=== PATIENT | male | born 1980 | race Caucasian/White ===

== ENCOUNTER 2021-01-26 11:47 | Emergency (ER) | payer SELFPAY ==
[2021-01-26 13:00] LABS: Absolute Lymphocytes (CBC) 2.3 K/uL (0.7-4.9); Basophils % 0.5 % (0-1.3); Hematocrit 40.5 % (39.6-49.0); Lymphocytes % 39.7 % (15.3-44.8); MPV 8.7 fL (7.6-11.3)
[2021-01-26] MEDS ORDERED: ONDANSETRON 4 MG/2 ML VIAL ONE (13:05)
[2021-01-26] MEDS ORDERED: KETOROLAC 30 MG/ML INJ ONE (13:06)
[2021-01-26] MEDS ORDERED: NA CHLORIDE 0.9% 1,000 ML ONE (13:06)
[2021-01-26 13:17] LABS: ALT/SGPT 22 U/L (12-78); AST/SGOT 13 U/L (15-37); Albumin 3.9 g/dL (3.4-5.0); Alkaline Phosphatase 56 U/L (45-117); BUN Blood Urea Nitrogen 18 mg/dL (7-18); Bicarbonate 31 mmol/L (21-32); Bilirubin Direct < 0.1 mg/dL (0-0.2); Bilirubin Total 0.2 mg/dL (0.2-1.0); Glucose Level 109 mg/dL (74-106); Lipase 70 U/L (73-393); Potassium 3.7 mmol/L (3.5-5.1); Protein, Total 6.9 g/dL (6.4-8.2); Sodium Level 143 mmol/L (136-145)
--- NOTE | 2021-01-26 13:27 | RAD REPORT ---
EXAM DESCRIPTION: US - Abdomen Exam Limited - 01/26/2021 1:17 pm CLINICAL HISTORY: ABD PAIN COMPARISON: No comparisons FINDINGS: No gallstones, sludge or other abnormalities within the gallbladder lumen. There is no wal l thickening or pericholecystic fluid. No common duct stone or biliary tree dilatation identified. IMPRESSION: Normal gallbladder and biliary tree ultrasound.
--- NOTE | 2021-01-26 14:11 | RAD REPORT ---
EXAM DESCRIPTION: CT - Abdomen Pelvis W Contrast - 01/26/2021 1:42 pm CLINICAL HISTORY: ABD PAIN, right upper quadrant pain COMPARISON: No comparisons TECHNIQUE: Biphasic, helical CT imaging of the abdomen and pelvis was performed following 100 ml non -ionic IV contrast. No oral contrast administered. All CT scans are performed using dose optimization technique as appropriate and may include automated exposure control or mA/KV adjustment according to patient size. FINDINGS: No suspicious findings in the lung bases. The liver, spleen, and pancreas show no suspicious findings. Gallbladder and biliary tree are also wi thout suspicious finding. Symmetric renal function is seen with no hydronephrosis or suspicious renal mass. No pyelonephritis o r acute parenchymal process. No bladder abnormalities. No adrenal abnormalities. No dilated bowel loops or bowel wall thickening. No appendicitis findings. No free air, free fluid or inflammatory stranding. No hernia, mass or bulky lymphadenopathy. No abdominal wall hematoma or ske letal muscle injury identifiable. No suspicious bony findings. IMPRESSION: Contrast enhanced CT abdomen and pelvis showing no significant or suspicious finding.
--- NOTE | 2021-01-26 14:34 | EDPHYS ---
Physician Documentation [facility] Name: Rangel Haji Age: 40 yrs Sex: Male : 1980 Arrival Date: 01/26/2021 Time: 11:49 Bed 28 Private MD: Bhupendra Shahid ED Physician Jono Pantoja HPI: 01/26 20:10 This 40 yrs old Male presents to ER via Ambulatory with complaints of Upper kb Abd Pain. 20:10 The patient presents with abdominal pain in the right upper quadrant. Onset: The kb symptoms/episode began/occurred 2 week(s) ago. The symptoms do not radiate. Associated signs and symptoms: none. The symptoms are described as constant. Modifying factors: The symptoms are alleviated by nothing, the symptoms are aggravated by nothing. Severity of pain: At its worst the pain was moderate in the emergency department the pain is unchanged. The patient has not experienced similar symptoms in the past. The patient has not recently seen a physician. Pt reports he was lifting heavy weight, leaning to the left and started having pain to RUQ 2 weeks ago. STates he has been taking antiinflammatories and muscle relaxers that help the pain, but when he doesn't take those the pain is still there. . Historical: - Allergies: 12:10 No Known Allergies; iw - Home Meds: 12:10 baclofen Oral [Active]; meloxicam oral oral [Active]; inhaler [Active]; iw - PMHx: 12:10 Asthma; iw - PSHx: 12:10 Tonsillectomy; iw - Immunization history:: Adult Immunizations Client reports having NOT received the Covid vaccine. - Social history:: Smoking status: Patient reports the use of cigarette tobacco products, smokes one-half pack cigarettes per day. ROS: 20:09 Constitutional: Negative for fever, chills, and weight loss. kb 20:09 Abdomen/GI: Positive for abdominal pain, Negative for nausea, vomiting, and diarrhea. 20:09 All other systems are negative. Exam: 20:09 Constitutional: This is a well developed, well nourished patient who is awake, alert, kb and in no acute distress. Head/Face: Normocephalic, atraumatic. ENT: Moist Mucous membranes Cardiovascular: Regular rate and rhythm with a normal S1 and S2. No gallops, murmurs, or rubs. No pulse deficits. Respiratory: Respirations even and unlabored. No increased work of breathing, no retractions or nasal flaring. Skin: Warm, dry with normal turgor. Normal color. MS/ Extremity: Pulses equal, no cyanosis. Neurovascular intact. Full, normal range of motion. Neuro: Awake and alert, GCS 15, oriented to person, place, time, and situation. Moves all extremities. Normal gait. Psych: Awake, alert, with orientation to person, place and time. Behavior, mood, and affect are within normal limits. 20:09 Abdomen/GI: Inspection: abdomen appears normal, Bowel sounds: normal, Palpation: soft, kb in all quadrants, moderate abdominal tenderness, in the right upper quadrant. Vital Signs: 12:07 BP 133 / 92; Pulse 119; Resp 18; Temp 98.2; Pulse Ox 100% on R/A; Weight 92.99 kg; iw Height 6 ft. 2 in. (187.96 cm); Pain 7/10; 12:30 BP 119 / 76; Pulse 69; Resp 20; Pulse Ox 100% on R/A; kg 13:00 BP 94 / 57; Pulse 65; Resp 20; Pulse Ox 100% ; kg 13:30 BP 110 / 69; Pulse 63; Resp 20; Pulse Ox 100% ; kg 12:07 Body Mass Index 26.32 (92.99 kg, 187.96 cm) iw MDM: 12:14 Patient medically screened. kb 20:09 Data reviewed: vital signs, nurses notes. Data interpreted: Pulse oximetry: on room air kb is 100 %. Interpretation: normal. 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 01/26 12:14 Order name: Basic Metabolic Panel; Complete Time: 13:21 kb 01/26 12:14 Order name: CBC with Diff; Complete Time: 13:08 kb 01/26 12:14 Order name: Hepatic Function; Complete Time: 13:21 kb 01/26 12:14 Order name: Lipase; Complete Time: 13:21 kb 01/26 12:33 Order name: US Abdomen Limited; Complete Time: 13:29 kb 01/26 13:21 Order name: CT Abd/Pelvis - IV Contrast Only; Complete Time: 14:12 kb 01/26 12:14 Order name: IV Saline Lock; Complete Time: 13:05 kb 01/26 12:14 Order name: Labs collected and sent; Complete Time: 13:05 kb Administered Medications: 12:45 Drug: NS 0.9% 1000 ml Route: IV; Rate: 1000 ml; Site: left antecubital; kg 15:07 Follow up: IV Status: Completed infusion; IV Intake: 1000ml kg 12:45 Drug: Zofran (Ondansetron) 4 mg Route: IVP; Site: left antecubital; kg 15:08 Follow up: Response: No adverse reaction kg 12:45 Drug: TORadol - (ketorolac) 15 mg Route: IVP; Site: left antecubital; kg 15:07 Follow up: Response: No adverse reaction; Marked relief of symptoms kg Disposition: 01/27 07:16 Co-signature as Attending Physician, Jono Pantoja MD I agree with the assessment and kelsey plan of care. Disposition: 01/26/21 14:34 Discharged to Home. Impression: Upper abdominal pain, unspecified. - Condition is Stable. - Discharge Instructions: Musculoskeletal Pain, Abdominal Pain, Adult, [id number]. - Medication Reconciliation Form, Thank You Letter, Antibiotic Education, Prescription Opioid Use form. - Follow up: Emergency Department; When: As needed; Reason: Worsening of condition. Follow up: Private Physician; When: 2 - 3 days; Reason: Recheck today's complaints, Continuance of care, Re-evaluation by your physician. Signatures: Dispatcher [employer] EDAZ Barbara Tello, Jono Cabral MD MD cha Williams, Irene, Riya Hester RN, RN RN kg Corrections: (The following items were deleted from the chart) 01/26 15:08 14:34 01/26/2021 14:34 Discharged to Home. Impression: Upper abdominal pain, kg unspecified. Condition is Stable. Forms are Medication Reconciliation Form, Thank You Letter, Antibiotic Education, Prescription Opioid Use. Follow up: Emergency Department; When: As needed; Reason: Worsening of condition. Follow up: Private Physician; When: 2 - 3 days; Reason: Recheck today's complaints, Continuance of care, Re-evaluation by your physician. kb 20:10 20:09 Constitutional: This is a well developed, well nourished patient who is awake, kb alert, and in no acute distress. Head/Face: Normocephalic, atraumatic. ENT: Moist Mucous membranes Cardiovascular: Regular rate and rhythm with a normal S1 and S2. No gallops, murmurs, or rubs. No pulse deficits. Respiratory: Respirations even and unlabored. No increased work of breathing, no retractions or nasal flaring. Abdomen/GI: Soft, non-tender. No distention Skin: Warm, dry with normal turgor. Normal color. MS/ Extremity: Pulses equal, no cyanosis. Neurovascular intact. Full, normal range of motion. Neuro: Awake and alert, GCS 15, oriented to person, place, time, and situation. Moves all extremities. Normal gait. Psych: Awake, alert, with orientation to person, place and time. Behavior, mood, and affect are within normal limits. kb
--- NOTE | 2021-01-26 14:34 | ER ---
Nurse's Notes [facility] Name: Rangel Haji Age: 40 yrs Sex: Male : 1980 Arrival Date: 01/26/2021 Time: 11:49 Bed 28 Private MD: Bhupendra Shahid Diagnosis: Upper abdominal pain, unspecified Presentation: 01/26 12:07 Chief complaint: Patient states: RUQ pain X 2 weeks , felt like a pulled muscle, was iw taking baclofen and meloxicam that he had from a previous arm injury, pain worsens when he eats and when he tries to sit down. Coronavirus screen: At this time, the client does not indicate any symptoms associated with coronavirus-19. Ebola Screen: Patient negative for fever greater than or equal to 101.5 degrees Fahrenheit, and additional compatible Ebola Virus Disease symptoms Patient denies exposure to infectious person. Patient denies travel to an Ebola-affected area in the 21 days before illness onset. No symptoms or risks identified at this time. Initial Sepsis Screen: Does the patient meet any 2 criteria? No. Patient's initial sepsis screen is negative. Does the patient have a suspected source of infection? No. Patient's initial sepsis screen is negative. Risk Assessment: Do you want to hurt yourself or someone else? Patient reports no desire to harm self or others. Onset of symptoms was January 13, 2021. 12:07 Method Of Arrival: Ambulatory iw 12:07 Acuity: JACKIE 3 iw Historical: - Allergies: 12:10 No Known Allergies; iw - Home Meds: 12:10 baclofen Oral [Active]; meloxicam oral oral [Active]; inhaler [Active]; iw - PMHx: 12:10 Asthma; iw - PSHx: 12:10 Tonsillectomy; iw - Immunization history:: Adult Immunizations Client reports having NOT received the Covid vaccine. - Social history:: Smoking status: Patient reports the use of cigarette tobacco products, smokes one-half pack cigarettes per day. Screenin:59 Abuse screen: Denies threats or abuse. Denies injuries from another. Nutritional kg screening: No deficits noted. Tuberculosis screening: No symptoms or risk factors identified. Fall Risk None identified. No fall in past 12 months (0 pts). No secondary diagnosis (0 pts). IV access (20 points). Ambulatory Aid- None/Bed Rest/Nurse Assist (0 pts). Gait- Normal/Bed Rest/Wheelchair (0 pts) Mental Status- Oriented to own ability (0 pts). Total Glass Fall Scale indicates No Risk (0-24 pts). Assessment: 12:54 General: Appears in no apparent distress. Behavior is cooperative, appropriate for age, kg anxious. Pain: Complains of pain in right upper quadrant Pain does not radiate. Pain currently is 2 out of 10 on a pain scale. at worst was 10 out of 10 on a pain scale. level that patient reports is acceptable is 3 out of 10 on a pain scale. Quality of pain is described as dull, numb, Pain began Two Weeks ago Is episodic. Neuro: No deficits noted. Level of Consciousness is awake, alert, obeys commands, Oriented to person, place, time, situation, Appropriate for age. Cardiovascular: No deficits noted. Heart tones S1 S2 Capillary refill < 3 seconds. Respiratory: No deficits noted. Reports shortness of breath at rest Airway is patent Breath sounds are clear bilaterally. GI: Abdomen is flat, Bowel sounds hypoactive in right upper quadrant, left upper quadrant, right lower quadrant and left lower quadrant Abd is soft Abdomen is tender to palpation in right upper quadrant Reports upper abdominal pain, Numbness. : No deficits noted. EENT: No deficits noted. Derm: No deficits noted. Musculoskeletal: No deficits noted. Injury Description:. Vital Signs: 12:07 BP 133 / 92; Pulse 119; Resp 18; Temp 98.2; Pulse Ox 100% on R/A; Weight 92.99 kg; iw Height 6 ft. 2 in. (187.96 cm); Pain 7/10; 12:30 BP 119 / 76; Pulse 69; Resp 20; Pulse Ox 100% on R/A; kg 13:00 BP 94 / 57; Pulse 65; Resp 20; Pulse Ox 100% ; kg 13:30 BP 110 / 69; Pulse 63; Resp 20; Pulse Ox 100% ; kg 12:07 Body Mass Index 26.32 (92.99 kg, 187.96 cm) iw ED Course: 11:49 Patient arrived in ED. ds1 11:50 Bhupendra Shahid MD is Private Physician. ds1 11:53 [facility]ello [facility] kb 11:53 Jono Pantoja MD is Attending Physician. kb 12:09 Triage completed. iw 12:10 Arm band placed on. iw 12:20 Inserted saline lock: 20 gauge in left antecubital area, using aseptic technique. kg 12:32 Riya Momin, RN is Primary Nurse. kg 13:03 Patient has correct armband on for positive identification. kg 13:05 US Abdomen Limited Sent. kg 13:17 US Abdomen Limited In Process Unspecified. EDMS 13:43 CT Abd/Pelvis - IV Contrast Only In Process Unspecified. EDMS 15:06 No provider procedures requiring assistance completed. IV discontinued, intact, kg bleeding controlled, No redness/swelling at site. Pressure dressing applied. Administered Medications: 12:45 Drug: NS 0.9% 1000 ml Route: IV; Rate: 1000 ml; Site: left antecubital; kg 15:07 Follow up: IV Status: Completed infusion; IV Intake: 1000ml kg 12:45 Drug: Zofran (Ondansetron) 4 mg Route: IVP; Site: left antecubital; kg 15:08 Follow up: Response: No adverse reaction kg 12:45 Drug: TORadol - (ketorolac) 15 mg Route: IVP; Site: left antecubital; kg 15:07 Follow up: Response: No adverse reaction; Marked relief of symptoms kg Intake: 15:07 IV: 1000ml; Total: 1000ml. kg Outcome: 14:34 Discharge ordered by . kb 15:06 Discharged to home ambulatory. kg 15:06 Condition: good 15:06 Discharge instructions given to patient, Instructed on discharge instructions, follow up and referral plans. Demonstrated understanding of instructions, follow-up care. 15:08 Patient left the ED. kg Signatures: Dispatcher [employer] EDNH Barbara Tello, RIZWANA QUINTANA-Sherie Barker ds1 Larisa Castañeda, RN RN iw Riya Momin, RN RN kg
[2021-01-26 15:26] VITALS: TEMP 98.2; O2SAT 100
[2021-01-26 15:30] VITALS: BP 110/69
== END 2021-01-26 15:08 | disposition home or self-care (01) ==
LOC: ER 11:47
DX: R10.10 Upper abdominal pain, unspecified (principal); J45.909 Unspecified asthma, uncomplicated; F17.210 Nicotine dependence, cigarettes, uncomplicated
CPT/HCPCS: 36415; 74177; 76705; 80048; 80076; 83690; 85025; 96361; 96374; 96375; 99284; J2405; J7030; Q9967